=== PATIENT | female | born 1960 ===

== ENCOUNTER 2024-11-22 06:20 | Day surgery (SDC) | payer OTHER, SELFPAY ==
[2024-11-22 09:37] LABS: Glucose - Point of Care 103 mg/dl (70-99)
== END 2024-11-22 11:11 | disposition home or self-care (01) ==
LOC: GI 06:20
PROVIDERS: ATTENDING PHYSICIAN Internal Medicine Gastroenterology
DX: Z12.11 Encounter for screening for malignant neoplasm of colon (principal); K64.8 Other hemorrhoids; K57.30 Diverticulosis of large intestine without perforation or abscess without bleeding; R12 Heartburn; K44.9 Diaphragmatic hernia without obstruction or gangrene; K31.7 Polyp of stomach and duodenum; D12.3 Benign neoplasm of transverse colon; D12.2 Benign neoplasm of ascending colon; K31.89 Other diseases of stomach and duodenum; K22.89 Other specified disease of esophagus; Z13.810 Encounter for screening for upper gastrointestinal disorder; Z86.0100 Personal history of colon polyps, unspecified
CPT/HCPCS: 45380; 43239; 88305; 82962; 87220; 88342